=== PATIENT | male | born 1960 | race Two or more races ===

== ENCOUNTER → 2017-06-21 | Outpatient (CLI) | payer OTHER ==
[~2017-06-21] MED LIST: CALCIUM 500 +1 EAC4 PO; PERCOCET 5-3251 TAB PO
--- NOTE | ~2017-06-21 | EKG ---
PATIENT: ROB BERKOWITZ UNIT #: [id number] Ventricular Rate: 86 BPM Atrial Rate: 86 BPM P-R Interval: 154 ms QRS Duration: 94 ms Q-T Interval: 402 ms QTC Calculation(Bezet): 481 ms P [place]: 29 degrees Calculated R [place]: -15 degrees Calculated T [place]: 6 degrees Diagnosis Line: Normal sinus rhythm Diagnosis Line: Prolonged QT Diagnosis Line: Abnormal ECG Diagnosis Line: No previous ECGs available Diagnosis Line: Confirmed by JOHN BARNES MD ([id number]) on 06/21/2017 Diagnosis Line: 7:27:33 PM INTERPRETING MD: MOLLY YOO
[2017-06-21 13:22] LABS: HEMATOCRIT 41.1 % (38.0-50.0); HEMOGLOBIN 13.9 gm/dL (13.0-16.0); MEAN CELL VOLUME 88.8 FL (83-96); MEAN CORPUSCULAR HEMOGLOBIN 30.1 PG (28-34); MEAN CORPUSCULAR HGB CONC 33.9 g/dL (30-36); RED BLOOD COUNT 4.63 X10e (3.90-5.60); WHITE BLOOD COUNT 4.6 X10e3 (4.0-10.5)
[2017-06-21 14:05] LABS: CALCIUM SERUM 9.2 mg/dL (8.4-10.2); POTASSIUM 4.4 mmol/L (3.5-5.1)
== END | disposition home or self-care (01) ==
LOC: CAMB 12:10
PROVIDERS: Specialist
DX: Z01.818 Encounter for other preprocedural examination (principal)
CPT/HCPCS: 36415; 80048; 85027; 93005

== ENCOUNTER → 2017-06-28 | Day surgery (SDC) | payer OTHER ==
--- NOTE | ~2017-06-28 | OR ---
Unit #: [id number] #: [id number] Patient: ROB BERKOWITZ [id number] [place], [place] [address] [id number] MR#: [id number] NAME: ROB BERKOWITZ ROOM: Date of Procedure: 06/28/2017 Admission Date: 06/28/2017 Surgeon: Puneet Campbell M.D. : 1960 Attending Physician: Puneet Campbell M.D. Primary Care Physician: Primary Care Physician No OPERATIVE REPORT PREOPERATIVE DIAGNOSIS Incarcerated umbilical hernia. POSTOPERATIVE DIAGNOSIS Incarcerated umbilical hernia. PROCEDURE PERFORMED Open repair with 8 cm Ventralex mesh. ANESTHESIA General endotracheal anesthesia. ESTIMATED BLOOD LOSS Less than 10 mL. INDICATIONS FOR PROCEDURE A 56-year-old gentleman with an enlarging and painful incarcerated umbilical hernia. He had no gastrointestinal symptoms. DESCRIPTION OF PROCEDURE The patient was admitted to [facility], positively identified, and transported to the operating room, and after induction of general endotracheal anesthesia, he received IV antibiotics per SCIP protocol and was prepped and draped in usual sterile fashion. In the skin line, a transverse incision was made below the umbilicus. The umbilical skin was from the hernia sac and then the hernia sac was grasped and elevated and opened at the level of the fascia. The hernia sac was excised and removed and the incarcerated omentum was reduced back in the peritoneal cavity. I palpating through the defect, no other fascial defects could be noted. An 8 cm Ventralex patch was placed in the peritoneal cavity, fully opened and pulled up against the anterior abdominal wall. It was secured circumferentially with 0 Ethibond interrupted sutures. After the mesh was adequately positioned and the fascia closed, 30 mL of 0.5% Marcaine epinephrine was infiltrated in the fascia and soft tissue. An umbilicoplasty was then performed and soft tissue was closed using 3-0 Vicryl interrupted suture and the skin was reapproximated with 4-0 Monocryl running subcuticular closure and Dermabond skin adhesive. Sponges and needle counts were correct x3. The patient tolerated the procedure well and transported to recovery in stable condition. Findings and postoperative instructions were discussed with the family through the pinked edge sewing machine operator. Unit #: [id number] #: [id number] Patient: ROB BERKOWITZ Dictated by... Sheldon Pineda/jacqui TD: 06/28/2017 13:48 JOB #: [id number] OPERATIVE REPORT Page 1 of 1 X Puneet Campbell MD PROCEDURE OPERATIVE NOTE
== END | disposition home or self-care (01) ==
LOC: CSUR 07:26
DX: K42.0 Umbilical hernia with obstruction, without gangrene (principal); F32.9 Major depressive disorder, single episode, unspecified; C61 Malignant neoplasm of prostate; Z85.038 Personal history of other malignant neoplasm of large intestine; Z80.0 Family history of malignant neoplasm of digestive organs; Z79.899 Other long term (current) drug therapy; Z98.890 Other specified postprocedural states
CPT/HCPCS: J0690; J1885; J2250; J2405; J3010